=== PATIENT | male | born 1950 | race Caucasian/White ===

== ENCOUNTER 2017-06-04 03:36 | Emergency (ER) | payer MEDICARE, MEDICAID ==
[~2017-06-04] VITALS: Ht 188 cm; Wt 104.0 kg
[~2017-06-04 03:36] MED LIST: CEPH500C3 PO; OXYC5 PO
[2017-06-04 03:38] VITALS: BP 158/83; PULSE 65; RESP 15; TEMP 97.7; O2SAT 96
[2017-06-04] MEDS ORDERED: PRAM1TAB PO (03:55)
[2017-06-04] MEDS ORDERED: OXYC1CAP PO (03:55)
[2017-06-04] MEDS ORDERED: DEXAMETHASONE SOD PHOS 20 MG/5 ML VIAL IM ONE (04:00)
[2017-06-04] MEDS ORDERED: CIPR0.2D LEFT EAR (04:08)
[2017-06-04] MEDS ORDERED: IBUP-232 PO (04:08)
--- NOTE | 2017-06-04 04:08 | PD ---
HPI Chief Complaint: ENT Complaint Time Seen by Provider: 03:48 Travel History International Travel<30 days: No Contact w/Intl Traveler<30days: No Traveled to known affect area: No History of Present Illness HPI 66-year-old male presents to the emergency department for evaluation a left ear pain worsening over the last week. Rates it an 8 out of 10, constant, throbbing. Denies any trauma. No drainage. [place] and he does not know if he was bit by an insect on the inside of his left ear. Denies any fever or chills. PFSH Past Medical History Diminished Hearing: No Hepatitis: Yes (HEP C) Hypertension: Yes Musculoskeletal: Yes (RESTLESS LEG SYNRDOME) Tetanus Vaccination: < 5 Years Influenza Vaccination: No Past Surgical History Tonsillectomy: Yes Other Surgery: Yes (LEFT FEMUR SURGERY) Social History Alcohol Use: Yes (OCCASIONAL) Tobacco Use: No Substance Use: No Allergies-Medications (Allergen,Severity, Reaction): Coded Allergies: acetaminophen (Unverified Allergy, Severe, PATIENT HAS HEP C, 06/04/17) cyclobenzaprine (Unverified Allergy, Severe, EMESIS, 06/04/17) doxycycline (Unverified Adverse Reaction, Intermediate, BLISTERS, 06/04/17) minocycline (Unverified Adverse Reaction, Intermediate, BLISTERS, 06/04/17) tigecycline (Unverified Adverse Reaction, Intermediate, BLISTERS, 06/04/17) Reported Meds & Prescriptions Reported Meds & Active Scripts Active Otovel Otic Drops (Ciprofloxacin-Fluocinolone Otic Drops) 0.3-0.025% Drops 1 Drop LEFT EAR BID Ibuprofen 600 Mg Tab 600 Mg PO Q8H PRN Reported Pramipexole (Pramipexole Dihydrochloride) 1 Mg Tab 1 Mg PO HS Oxycodone (Oxycodone HCl) 5 Mg Cap 5 Mg PO Q6H PRN Physical Exam Narrative GENERAL: Well-nourished, well-developed male patient in no acute distress SKIN: Focused skin assessment warm/dry. HEAD: Normocephalic. no mastoid tenderness EARS: Bilateral pinnae right external canals appear within normal limits. Right tympanic membranes without erythema, dullness or perforation. I am unable to visualize left tympanic membrane due to significant external canal swelling. No drainage. EYES: No scleral icterus. No injection or drainage. NECK: Supple, trachea midline. No JVD or lymphadenopathy. CARDIOVASCULAR: Regular rate and rhythm without murmurs, gallops, or rubs. RESPIRATORY: Breath sounds equal bilaterally. No accessory muscle use. MUSCULOSKELETAL: No cyanosis, or edema. BACK: Nontender without obvious deformity. No CVA tenderness. Data Data Last Documented VS Vital Signs Date Time Temp Pulse Resp B/P (MAP) Pulse Ox O2 Delivery O2 Flow Rate FiO2 06/04/17 04:35 06/04/17 03:38 97.7 65 15 96 Room Air Orders Orders Dexamethasone Inj (Decadron Inj) (06/04/17 04:00) MDM Medical Decision Making Medical Screen Exam Complete: Yes Emergency Medical Condition: Yes Medical Record Reviewed: Yes Differential Diagnosis Otitis externa versus otitis media versus local reaction versus cyst versus abscess Narrative Course 66-year-old male presents to emergency department for evaluation of left ear pain. Patient has a significant otitis externa. There is some opening and I'm confident that drops can get into the ear, however I am unable to accurately visualize the tympanic membrane. Patient is counseled on care. He is encouraged follow-up with primary care provider. He agrees to return immediately with any acute worsening of symptoms. Diagnosis Primary Impression: Left otitis externa Qualified Codes: H60.502 - Unspecified acute noninfective otitis externa, left ear Referrals: Primary Care Physician Patient Instructions: General Instructions, Otitis Externa (ED) Additional Instructions: Avoid water submersion Follow-up with your primary care provider Return immediately with any acute worsening of symptoms Med/Other Pt SpecificInfo: Prescription(s) given Scripts Ciprofloxacin-Fluocinolone Otic Drops (Otovel Otic Drops) 0.3-0.025% Drops 1 DROP LEFT EAR BID for Infection, #1 BOX 0 Refills Prov: Leta Pool 06/04/17 Ibuprofen (Ibuprofen) 600 Mg Tab 600 MG PO Q8H Y for PAIN, #30 TAB 0 Refills Prov: Leta Pool 06/04/17 Disposition: 01 DISCHARGE HOME Condition: Stable Leta Pool Jun 04, 2017 04:08
== END 2017-06-04 04:35 | disposition home or self-care (01) ==
LOC: NEPD 03:36
DX: H60.92 Unspecified otitis externa, left ear (principal); I10 Essential (primary) hypertension; G25.81 Restless legs syndrome; Z86.19 Personal history of other infectious and parasitic diseases; Z79.899 Other long term (current) drug therapy; Z88.8 Allergy status to other drugs, medicaments and biological substances
CPT/HCPCS: 96372; 99284; J1100

== ENCOUNTER 2017-06-10 05:05 | Emergency (ER) | payer MEDICARE, MEDICAID ==
[~2017-06-10] VITALS: Ht 188 cm; Wt 104.5 kg
[~2017-06-10 05:05] MED LIST changes: -CEPH500C3 PO; +CIPR0.2D LEFT EAR; +IBUP-232 PO; +OXYC1CAP PO; -OXYC5 PO; +PRAM1TAB PO
[2017-06-10 05:07] VITALS: BP 127/80; PULSE 64; RESP 16; TEMP 98.1; O2SAT 98
--- NOTE | 2017-06-10 05:46 | PD ---
HPI Chief Complaint: ENT Complaint Time Seen by Provider: 05:34 Travel History International Travel<30 days: No Contact w/Intl Traveler<30days: No Traveled to known affect area: No History of Present Illness HPI 66-year-old male presents to emergency for reevaluation of left otitis externa. Patient was seen on the of this month. Diagnosed with otitis externa. He states he started his ear drops 3 days ago. He thought that it would be resolved by now but the pain persists. Moderate in severity. He states it is not worse but he felt like it should be gone at this time. He believes there may be fungus in his ear and this is why it is not getting better. Denies any drainage. No fever or chills. No trauma Has no other symptoms to report. PFSH Past Medical History Diminished Hearing: No Hepatitis: Yes (HEP C) Hypertension: Yes Musculoskeletal: Yes (RESTLESS LEG SYNRDOME) Past Surgical History Coronary Artery Bypass Graft: Yes Tonsillectomy: Yes Other Surgery: Yes (LEFT FEMUR SURGERY) Social History Alcohol Use: Yes (OCCASIONAL) Tobacco Use: No Substance Use: No Allergies-Medications (Allergen,Severity, Reaction): Coded Allergies: acetaminophen (Unverified Allergy, Severe, PATIENT HAS HEP C, 06/10/17) cyclobenzaprine (Unverified Allergy, Severe, EMESIS, 06/10/17) doxycycline (Unverified Adverse Reaction, Intermediate, BLISTERS, 06/10/17) minocycline (Unverified Adverse Reaction, Intermediate, BLISTERS, 06/10/17) tigecycline (Unverified Adverse Reaction, Intermediate, BLISTERS, 06/10/17) Reported Meds & Prescriptions Reported Meds & Active Scripts Active Otovel Otic Drops (Ciprofloxacin-Fluocinolone Otic Drops) 0.3-0.025% Drops 1 Drop LEFT EAR BID Reported Pramipexole (Pramipexole Dihydrochloride) 1 Mg Tab 1 Mg PO HS Oxycodone (Oxycodone HCl) 5 Mg Cap 5 Mg PO Q6H PRN Review of Systems Except as stated in HPI: all other systems reviewed are Neg Physical Exam Narrative GENERAL: Well-nourished, well-developed male patient, in no acute distress SKIN: Focused skin assessment warm/dry. HEAD: Normocephalic. No mastoid tenderness EARS: Bilateral pinnae and right external canals appear within normal limits. The left external canal is edematous but much improved from previous assessment. I am able to visualize the tympanic membrane that is dull without erythema or effusion. The right tympanic membrane is also dull without erythema or effusion. EYES: No scleral icterus. No injection or drainage. NECK: Supple, trachea midline. No JVD or lymphadenopathy. CARDIOVASCULAR: Regular rate and rhythm without murmurs, gallops, or rubs. RESPIRATORY: Breath sounds equal bilaterally. No accessory muscle use. Data Data Last Documented VS Vital Signs Date Time Temp Pulse Resp B/P (MAP) Pulse Ox O2 Delivery O2 Flow Rate FiO2 06/10/17 05:07 98.1 64 16 127/80 (96) 98 MDM Medical Decision Making Medical Screen Exam Complete: Yes Emergency Medical Condition: Yes Medical Record Reviewed: Yes Differential Diagnosis Otitis externa versus otitis media versus psoriasis versus contact dermatitis versus abscess versus insect bite Narrative Course 66-year-old male presents to the emergency department for evaluation persistent left ear pain. Patient appears without distress. I had seen and evaluated the patient on his most recent visit. The edema of his left external canal has decreased significantly. I've encouraged the patient to continue the eardrops. He did not fill the ibuprofen that was prescribed to him. I encouraged him to do this as well. He is advised to follow-up with primary care provider and seek ear nose and throat evaluation if symptoms persist. He agrees to return immediately with any acute worsening of symptoms. Diagnosis Primary Impression: Otitis externa of left ear Qualified Codes: H60.502 - Unspecified acute noninfective otitis externa, left ear Referrals: Ear / Nose / Throat Specialist Primary Care Physician Patient Instructions: General Instructions, Otitis Externa (ED) Additional Instructions: Continue medication as prescribed Follow-up with your primary care provider Follow-up with an circular shear operator if symptoms persist Return immediately to the emergency department with any acute worsening of symptoms Med/Other Pt SpecificInfo: No Change to Meds Disposition: 01 DISCHARGE HOME Condition: Stable CorineLeta LUNA Jun 10, 2017 05:46
== END 2017-06-10 05:59 | disposition home or self-care (01) ==
LOC: NEPD 05:05
DX: H60.92 Unspecified otitis externa, left ear (principal); B19.20 Unspecified viral hepatitis C without hepatic coma; I10 Essential (primary) hypertension; G25.81 Restless legs syndrome; Z79.899 Other long term (current) drug therapy; Z88.8 Allergy status to other drugs, medicaments and biological substances
CPT/HCPCS: 99282

== ENCOUNTER 2018-02-02 07:03 | Emergency (ER) | payer MEDICARE, MEDICAID ==
[~2018-02-02] VITALS: Ht 188 cm; Wt 108.0 kg
[~2018-02-02 07:03] MED LIST changes: -IBUP-232 PO
[2018-02-02 07:11] VITALS: BP 139/70; PULSE 80; RESP 18; TEMP 97.9; O2SAT 99
[2018-02-02] MEDS ORDERED: predniSONE 20 MG TAB PO ONE (07:45)
--- NOTE | 2018-02-02 08:06 | PD ---
HPI Chief Complaint: Musculoskeletal Complaint Time Seen by Provider: 07:26 Travel History International Travel<30 days: No Contact w/Intl Traveler<30days: No Traveled to known affect area: No History of Present Illness HPI 67-year-old male presents emergency department with 3 day history of worsening left knee pain and swelling. Patient states previous history of femur fracture at age 17 with recurrent surgery to the femur in 1990. Patient has been seen by Dr. Mejia in the past for other orthopedic issues. Patient chronically has left knee pain and left femur pain for which he takes oxycodone at home. Patient states he does not recall any specific injury causing his current condition. Patient states he has had trouble with it when he overdoes it at home, such as and when he mows the lawn. Patient states however, that he has never had swelling like this. He states he was driving home from [place] in the last 2 days. He denies calf pain, numbness, or tingling. Patient is having difficulty ambulating today secondary to the pain and swelling. Pain is currently 8 out of 10. Patient states he has oxycodone at home. He is allergic to acetaminophen, cyclobenzaprine, doxycycline, minocycline, and tigecycline. PFSH Past Medical History Hx Anticoagulant Therapy: No Diminished Hearing: No Hepatitis: Yes (HEP C) Hypertension: Yes Musculoskeletal: Yes (RESTLESS LEG SYNRDOME) Past Surgical History Coronary Artery Bypass Graft: Yes Tonsillectomy: Yes Other Surgery: Yes (LEFT FEMUR SURGERY) Social History Alcohol Use: Yes (OCCASIONAL) Tobacco Use: No Substance Use: No Allergies-Medications (Allergen,Severity, Reaction): Coded Allergies: acetaminophen (Unverified Allergy, Severe, PATIENT HAS HEP C, 06/10/17) cyclobenzaprine (Unverified Allergy, Severe, EMESIS, 06/10/17) doxycycline (Unverified Adverse Reaction, Intermediate, BLISTERS, 06/10/17) minocycline (Unverified Adverse Reaction, Intermediate, BLISTERS, 06/10/17) tigecycline (Unverified Adverse Reaction, Intermediate, BLISTERS, 06/10/17) Reported Meds & Prescriptions Reported Meds & Active Scripts Active Reported Pramipexole (Pramipexole Dihydrochloride) 1 Mg Tab 1 Mg PO HS Oxycodone (Oxycodone HCl) 5 Mg Cap 5 Mg PO Q6H PRN Review of Systems Except as stated in HPI: all other systems reviewed are Neg General / Constitutional: No: Fever Eyes: No: Visual changes HENT: No: Headaches Cardiovascular: No: Chest Pain or Discomfort Respiratory: No: Shortness of Breath Gastrointestinal: No: Abdominal Pain Genitourinary: No: Dysuria Musculoskeletal: Positive: Arthralgias, Limited ROM, Pain, Other (Left knee swelling.) Skin: No Rash Neurologic: No: Weakness Psychiatric: No: Depression Endocrine: No: Polydipsia Hematologic/Lymphatic: No: Easy Bruising Physical Exam Narrative GENERAL: Patient appears in mild to moderate distress. SKIN: Warm and dry. Normal color. Normal turgor. No significant erythema. HEAD: Atraumatic. Normocephalic. EYES: Pupils equal and round. No scleral icterus. No injection or drainage. ENT: No nasal bleeding or discharge. Mucous membranes pink and moist. Pharynx is clear. Airways patent. NECK: Trachea midline. Supple and nontender. CARDIOVASCULAR: Regular rate and rhythm. RESPIRATORY: No accessory muscle use. Clear to auscultation. Breath sounds equal bilaterally. GASTROINTESTINAL: Abdomen soft, non-tender, nondistended. Hepatic and splenic margins not palpable. MUSCULOSKELETAL: Extremities without clubbing, cyanosis, or edema. No obvious deformities. Patient is noted to have moderate effusion to the left knee mainly in the suprapatellar aspect. There is no obvious laxity. Range of motion is limited secondary to patient swelling. Strength is intact. NEUROLOGICAL: Awake and alert. No obvious cranial nerve deficits. Motor grossly within normal limits. Five out of 5 muscle strength in the arms and legs. Normal speech. PSYCHIATRIC: Appropriate mood and affect; insight and judgment normal. Data Data Last Documented VS Vital Signs Date Time Temp Pulse Resp B/P (MAP) Pulse Ox O2 Delivery O2 Flow Rate FiO2 02/02/18 07:11 97.9 80 18 139/70 (93) 99 Orders Orders Prednisone (Deltasone) (02/02/18 07:45) Splint Or Brace Apply/Monitor (02/02/18 07:41) Crutches (02/02/18 07:41) Knee, Complete (4vws) (02/02/18 07:41) Ice/Cold Pack (02/02/18 07:41) MDM Medical Decision Making Medical Screen Exam Complete: Yes Emergency Medical Condition: Yes Differential Diagnosis Left knee pain. Left knee effusion. Gout. Narrative Course X-rays obtained of the left knee. Patient is placed in a knee immobilizer. Patient is placed in crutches. Patient is given prednisone 60 mg p.o. now. Patient continued on prednisone 20 mg twice daily 5 days. Patient can take his own oxycodone as needed for pain. Patient should elevate and ice the knee frequently. Patient to follow with Dr. Mejia for further evaluation and treatment. Diagnosis Primary Impression: Effusion of left knee joint Referrals: August Benites MD Patient Instructions: Crutch Instructions (ED), General Instructions, Knee Immobilizer (DC), Prednisone (By mouth) Additional Instructions: X-rays obtained of the left knee. Patient is placed in a knee immobilizer. Patient is placed in crutches. Patient is given prednisone 60 mg p.o. now. Patient continued on prednisone 20 mg twice daily 5 days. Patient can take his own oxycodone as needed for pain. Patient should elevate and ice the knee frequently. Patient to follow with Dr. Mejia for further evaluation and treatment. Med/Other Pt SpecificInfo: Prescription(s) given Disposition: 01 DISCHARGE HOME Condition: Stable Asim Chavira February 02, 2018 08:06
[2018-02-02] MEDS ORDERED: PRED20 PO (08:47)
--- NOTE | 2018-02-02 09:03 | RADRPT ---
EXAM DATE: 02/02/2018 8:17 AM EDT AGE/SEX: 67 years / Male INDICATIONS: Left knee pain & swelling CLINICAL DATA: This is the patient's initial encounter. Patient reports that signs and symptoms have been present for 3 days and indicates a pain score of 10/10. MEDICAL/SURGICAL HISTORY: None. . Right knee pinning. COMPARISON: No prior [facility] exams available for comparison. FINDINGS: Bony structures are intact and in normal alignment. There is prominent osteoarthritis inv olving the entire knee joint. There is narrowing of the medial joint compartment. Osseous density is normal. There is soft tissue swelling above the knee cap suggestive of an effusion. No radiopaque foreign bodies seen. CONCLUSION: 1. Prominent osteoarthritis throughout the entire knee joint. 2. Soft tissue swelling above the knee cap suggestive of an effusion. Electronically signed by: Keith Mukherjee MD 02/02/2018 9:02 AM EDT
== END 2018-02-02 09:00 | disposition home or self-care (01) ==
LOC: NEPD 07:03
DX: M25.462 Effusion, left knee (principal)
CPT/HCPCS: 73564; 99283; E0113; J7512; L1830